=== PATIENT | female | born 1935 | race Caucasian/White ===

== ENCOUNTER 2020-10-19 11:51 | Emergency (ER) | payer MEDICARE ==
[~2020-10-19] VITALS: Ht 152.4 cm; Wt 44.0 kg
--- NOTE | 2020-10-19 13:11 | RAD ---
STUDY: 1. CT head without contrast 2. CT maxillofacial without contrast INDICATION: Fall, pain, facial swelling and epistaxis COMPARISON: None available TECHNIQUE: Axial CT imaging of the head and maxillofacial structures is performed without the use of intravenous contrast. Sagittal and coronal reformats were obtained. One or more of the following individualized dose reduction techniques were utilized for this examinat ion: 1. Automated exposure control 2. Adjustment of the mA and/or kV according to patient size 3. Use of iterative reconstruction technique. FINDINGS: CT HEAD: Prominence of cortical sulci and ventricular system is noted consistent with mild age-related atrophy . There is no extra axial fluid collection, intraparenchymal hemorrhage, mass or acute infarct. Visualized orbits, paranasal sinuses and the mastoid air cells are clear. CT MAXILLOFACIAL: There is normal aeration of both maxillary, ethmoid, sphenoid and frontal sinuses. The bony orbital m argins and the intraorbital contents are bilaterally symmetric and unremarkable. The nasal bones and zygomatic arches are preserved. The airway is maintained. The visualized structures in the neck appea r grossly unremarkable. IMPRESSION: CT HEAD: 1. Age-related atrophy and bilateral periventricular small vessel ischemic changes. CT MAXILLOFACIAL: 1. No acute abnormality seen in the CT maxillofacial Electronically signed by: Simi Salgado MD (10/19/2020 1:08 PM) [facility]
--- NOTE | 2020-10-19 13:34 | PHYS DOC ---
Past Medical History Past Medical History: Unknown Past Surgical History: No Surgical History Smoking Status: Never Smoker Alcohol Use: None General Adult EDM: Chief Complaint: HEAD INJURY/TRAUMA HPI: HPI: Patient is a 85 year old [f__sex] who presents with [] Review of Systems: Review of Systems: Constitutional: Denies fever or chills Eyes: Denies redness or eye pain HENT: Denies nasal congestion or sore throat Respiratory: Denies cough or shortness of breath Cardiovascular: Denies chest pain or palpitations GI: Denies abdominal pain, nausea, or vomiting : Denies dysuria or hematuria Musculoskeletal: Denies back pain or joint pain Integument: Denies rash or skin lesions Neurologic: Denies headache, focal weakness or sensory changes Complete systems were reviewed and found to be within normal limits, except as documented in this note. Heart Score: C/O Chest Pain: N/A Allergies: Allergies: Allergies Coded Allergies Type Severity Reaction Last Updated Verified Penicillins Allergy Intermediate 10/19/20 Yes Sulfa (Sulfonamide Antibiotics) Allergy Intermediate 10/19/20 Yes amoxicillin Allergy Intermediate 10/19/20 Yes iodine Allergy Intermediate 10/19/20 Yes Physical Exam: PE: Constitutional: Well developed, well nourished, no acute distress, non-toxic appearance HENT: Normocephalic, atraumatic Eyes: PERRL, EOMI, conjunctiva normal, no discharge Neck: Normal range of motion, no tenderness, supple Lungs & Thorax: No respiratory distress, equal chest rise and fall Abdomen: Soft, no tenderness Skin: Warm, dry, no erythema, no rash Back: No tenderness, no CVA tenderness Extremities: No tenderness, ROM intact, no edema Neurologic: Alert and oriented X 3, normal motor function, normal sensory function, no focal deficits noted Psychologic: Affect normal, judgment normal Current Patient Data: Vital Signs: Vital Signs Date Time Temp Pulse Resp B/P (MAP) Pulse Ox O2 Delivery O2 Flow Rate FiO2 10/19/20 12:00 98.2 87 18 159/75 (103) 96 Room Air 98.2 EKG: EKG: [] Radiology/Procedures: Radiology/Procedures: PROCEDURE: CT HEAD AND MAXILLOFACIAL WO STUDY: 1. CT head without contrast 2. CT maxillofacial without contrast INDICATION: Fall, pain, facial swelling and epistaxis COMPARISON: None available TECHNIQUE: Axial CT imaging of the head and maxillofacial structures is performed without the use of intravenous contrast. Sagittal and coronal reformats were obtained. One or more of the following individualized dose reduction techniques were utilized for this examination: 1. Automated exposure control 2. Adjustment of the mA and/or kV according to patient size 3. Use of iterative reconstruction technique. FINDINGS: CT HEAD: Prominence of cortical sulci and ventricular system is noted consistent with mild age-related atrophy. There is no extra axial fluid collection, intraparenchymal hemorrhage, mass or acute infarct. Visualized orbits, paranasal sinuses and the mastoid air cells are clear. CT MAXILLOFACIAL: There is normal aeration of both maxillary, ethmoid, sphenoid and frontal sinuses. The bony orbital margins and the intraorbital contents are bilaterally symmetric and unremarkable. The nasal bones and zygomatic arches are preserved. The airway is maintained. The visualized structures in the neck appear grossly unremarkable. IMPRESSION: CT HEAD: 1. Age-related atrophy and bilateral periventricular small vessel ischemic changes. CT MAXILLOFACIAL: 1. No acute abnormality seen in the CT maxillofacial Electronically signed by: Simi Salgado MD (10/19/2020 1:08 PM) [facility] Course & Med Decision Making: Course & Med Decision Making Pertinent Imaging studies reviewed. (See chart for details) Patient stable for discharge with outpatient follow-up with PCP. Discussed findings and plan with patient, who acknowledges understanding and agreement. Jeet Disclaimer: Jeet Disclaimer: This electronic medical record was generated, in whole or in part, using a voice recognition dictation system. Departure Departure Impression: Primary Impression: Head contusion Qualified Codes: S00.93XA - Contusion of unspecified part of head, initial encounter Disposition: HOME / SELF CARE / HOMELESS Condition: STABLE Referrals: SINTIA LING MD (PCP) Patient Instructions: Facial or Scalp Contusion, Uoyz-as-Eros KRISTIN SABILLON DO October 19, 2020 13:34
[2020-10-19 13:40] VITALS: BP 137/65
== END 2020-10-19 13:40 | disposition home or self-care (01) ==
LOC: ER 11:51
DX: S00.93XA Contusion of unspecified part of head, initial encounter (principal); R51.9 Headache, unspecified; M54.2 Cervicalgia; Z88.0 Allergy status to penicillin; Z88.1 Allergy status to other antibiotic agents; Z88.2 Allergy status to sulfonamides; Z88.8 Allergy status to other drugs, medicaments and biological substances; W18.39XA Other fall on same level, initial encounter; Y93.89 Activity, other specified; Y92.89 Other specified places as the place of occurrence of the external cause; Y99.8 Other external cause status
CPT/HCPCS: 70450; 70486; 99284-25